=== PATIENT | male | born 1980 | race Caucasian/White ===

== ENCOUNTER 2018-07-13 04:52 | Emergency (ER) | payer OTHER ==
[~2018-07-13] VITALS: Ht 177.8 cm; Wt 97.5 kg
[2018-07-13] MEDS ORDERED: NORCO 5-325 TA1 EACH PO (06:22)
[2018-07-13] MEDS ORDERED: ZOFRAN ODT4 MG PO (06:22)
== END 2018-07-13 06:38 | disposition home or self-care (01) ==
LOC: ED 04:52
DX: N13.2 Hydronephrosis with renal and ureteral calculous obstruction (principal)
CPT/HCPCS: 74176; 80053; 81001; 83690; 85025; 96374; 96375; 99284; J1170; J1885; J2405

== ENCOUNTER 2022-05-19 20:35 | Emergency (ER) | payer OTHER ==
[~2022-05-19] VITALS: Ht 177.8 cm; Wt 97.5 kg
[~2022-05-19 20:35] MED LIST: NORCO 5-325 TA1 EACH PO; ZOFRAN ODT4 MG PO
--- NOTE | 2022-05-20 18:22 | EKG ---
[facility] [address] [place] [address] Signed Sinus rhythm with premature atrial complexes Otherwise normal ECG No previous ECGs available Confirmed by JAIRO MAE MD [id number] on 05/20/2022 6:22:03 PM Electronically Signed By: JAIRO MAE MD 05/20/221821 PATIENT NAME: ANATOLIY MCGOWAN ARTURO Electrocardiogram DATE OF : 78 PHYSICIAN: JAIRO MAE MD REPORT #: [id number] REPORT IS CONFIDENTIAL AND NOT TO BE RELEASED WITHOUT AUTHORIZATION
== END 2022-05-20 00:16 | disposition home or self-care (01) ==
LOC: ED 20:35
DX: E86.0 Dehydration (principal); T67.5XXA Heat exhaustion, unspecified, initial encounter; X30.XXXA Exposure to excessive natural heat, initial encounter
CPT/HCPCS: 36415; 80053; 81001; 84484; 85025; 93005; 93010; J1200; J1790; J7121

== ENCOUNTER 2024-08-15 02:06 | Emergency (ER) | payer OTHER ==
[~2024-08-15] VITALS: Ht 175.3 cm; Wt 101.9 kg
[2024-08-15] MEDS ORDERED: TAMSULOSIN HCL 0.4 MG CAP PO ONE (02:30)
[2024-08-15] MEDS ORDERED: ondansetron HCL 4 MG/2 ML VIAL IV ONE (02:30)
[2024-08-15] MEDS ORDERED: FAMOTIDINE 20 MG/ 2 ML VIAL IV ONE (02:30)
[2024-08-15] MEDS ORDERED: KETOROLAC TROMETHAMINE 30 MG/ML VIAL IV ONE (02:30)
[2024-08-15] MEDS ORDERED: LACTATED RINGER'S 1,000 ML IV ONE (02:30)
[2024-08-15 02:39] LABS: BASOPHILS 1.3 % (0-2); EOSINOPHILS 5.3 % (0-6); HEMATOCRIT 46.4 % (35.0-50.0); HEMOGLOBIN 15.6 g/dL (12.0-18.0); LYMPHOCYTES 23.2 % (24-44); MCH 30.2 (27-36); MCHC 33.6 g/dl (30-36); MCV 89.8 fl (81-99); MONOCYTES 9.6 % (0-12); NEUTROPHILS 60.6 % (39-80); PLATELET COUNT 286 K/uL (140-440); RBC 5.17 M/ul (4.3-5.7); RDW 13.1 (10.5-15.0)
[2024-08-15 02:54] LABS: ALBUMIN 3.7 g/dL (3.4-5.0); ANION GAP 12.9 (7-21); BILIRUBIN, TOTAL 0.4 ng/dL (0.2-1.0); BUN/CREATININE RATIO 13.46 (6.0-28.6); CALCIUM 9.4 mg/dL (8.5-10.1); CREATININE, SERUM 1.04 mg/dL (0.70-1.30); POTASSIUM 3.9 mmol/L (3.5-5.1); PROTEIN, TOTAL 7.4 g/dL (6.4-8.2)
[2024-08-15 02:58] LABS: BILIRUBIN, URINE NEGATIVE (negative); BLOOD/HGB, URINE LARGE (Negative); KETONE, URINE NEGATIVE (Negative); LEUK ESTERASE, URINE NEGATIVE (negative); NITRITE, URINE NEGATIVE (negative); PH, URINE 5.5 (5-7)
[2024-08-15 03:09] LABS: EPITHELIAL CELLS, URINE SQUAMOUS 1+ /lpf (0-1+); RED BLOOD CELLS, URINE >50 /hpf (0-5)
[2024-08-15 03:10] LABS: BACTERIA, URINE RARE /hpf (negative); CASTS, URINE NONE SEEN \\lpf; COLLECTION TYPE, URINE CLEAN CATCH; CRYSTALS, URINE NONE SEEN (0-1+); REFLEX CULTURE, URINE No (No); WHITE BLOOD CELLS, URINE 0-1 /HPF (0-5)
[2024-08-15] MEDS ORDERED: FLOMAX0.4 MG PO (03:10)
[2024-08-15 03:19] VITALS: BP 151/101
== END 2024-08-15 03:19 | disposition home or self-care (01) ==
LOC: ED 02:06
PROVIDERS: Internal Medicine
DX: N20.2 Calculus of kidney with calculus of ureter (principal); Z87.442 Personal history of urinary calculi
CPT/HCPCS: 36415; 74176; 80053; 81001; 83690; 85025; 96374; 96375; 99284-25; J1885; J2405; J7121